=== PATIENT | male | born 2005 | race Caucasian/White ===

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

== ENCOUNTER 2023-06-10 05:18 | Emergency (ER) | payer OTHER ==
[2023-06-10 05:29] VITALS: BP 147/83; PULSE 118; RESP 22; TEMP 100.1; BMI 22.8
[2023-06-10] MEDS ORDERED: IBUPROFEN 400 MG TABLET (FP) PO ONE ×2 (05:41→05:52)
[2023-06-10] MEDS ORDERED: LIDOCAINE VISCOUS 2% ORAL/TOP 15 ML UNIT-DOSE CUP MM ONE (05:49)
[2023-06-10] MEDS ORDERED: ACETAMINOPHEN 325 MG TABLET (FP) PO ONE (05:49)
[2023-06-10] MEDS ORDERED: DEXAMETHASONE 4 MG TABLET (FP) PO ONE (05:51)
[2023-06-10] MEDS ORDERED: LIDOCAINE VISCOUS 2% ORAL/TOP 15 ML UNIT-DOSE CUP ONE (05:51)
[2023-06-10] MEDS ORDERED: DEXAMETHASONE 4 MG TABLET (FP) ONE (05:52)
[2023-06-10] MEDS ORDERED: ACETAMINOPHEN 325 MG TABLET (FP) ONE (05:52)
[2023-06-10] MEDS ORDERED: PENICILLIN G BENZATHINE 1,200,000 UNIT/2 ML PFS IM ONE (05:58)
== END 2023-06-10 06:47 | disposition home or self-care (01) ==
LOC: JER 05:18
DX: J02.9 Acute pharyngitis, unspecified (principal); R05.1 Acute cough; R09.81 Nasal congestion; R51.9 Headache, unspecified; R68.83 Chills (without fever); Z20.822 Contact with and (suspected) exposure to COVID-19
CPT/HCPCS: 0241U-QW; 87070; 87651; 99284-25